=== PATIENT | female | born 1980 | race Caucasian/White ===

== ENCOUNTER 2017-12-17 08:26 | Emergency (ER) | payer OTHER ==
[~2017-12-17] VITALS: Ht 162.6 cm; Wt 110.0 kg
[~2017-12-17 08:26] MED LIST: AMOXICILLIN500 MG OR; AMOXICILLIN500 MG PO; BENTYL10 MG PO; CIPRO500 MG OR; CIPROFLOXACN500 MG PO; CLARITIN10 M1 PO; FLEXERIL10 MG PO; LORTAB 5 OR; MEDDOSEPAK PO; NAPROSYN500 MG PO; NO; PERCOCET 5/325M1 TAB OR; PROTONIX40 MG OR; ROBITUSSIN AC10 ML PO; TAM75CAP PO; TRAMADOL HCL50 MG PO; TRIMOX500 MG PO; ULTRAM50 M1 PO; ULTRAM50 MG OR; ZITHROMAX250 MG PO; ZOFRAN ODT4 MG PO; ZPAK PO
[2017-12-17 08:59] LABS: HEMATOCRIT 41.5 % (37.0-47.0); HEMOGLOBIN 13.5 g/dl (12.0-16.0); IMMATURE GRANULOCYTES 0.3 % (0.0-1.0); MEAN CELL VOLUME 85.4 fL CALC (80.0-100.0); MEAN CORPUSCULAR HGB 27.8 pG CALC (26.0-32.0); MEAN CORPUSCULAR HGB CONC 32.5 g/L CALC (32.0-36.0); NEUT# 12.49 thou/uL (2.00-7.15); RED BLOOD COUNT 4.86 mill/uL (4.20-5.60); RED CELL DISTRI WIDTH 13.5 % (11.5-15.5)
[2017-12-17 09:11] LABS: ALBUMIN 4.3 g/dL (3.2-5.0); ALKALINE PHOSPHATASE 97 u/l (38-126); ANION GAP 18 (6-22 (CALC)); BILIRUBIN, TOTAL 1.1 mg/dL (0.0-1.4); BUN 9 mg/dL (7-17); BUN/CREATININE RATIO 11 (12-20 (CALC)); CARBON DIOXIDE 24 mmol/l (22-30); CHLORIDE 106 mmol/l (95-108); CREATININE 0.8 mg/dL (0.5-1.0); GFR > 60 ML/MIN (>=60 (CALC)); GFR FOR AFR.AMER. > 60 ML/MIN (>=60 (CALC)); SGOT/AST 59 u/l (14-36); SGPT/ALT 58 u/l (9-52); SODIUM 143 mmol/l (137-146); TOTAL PROTEIN 7.7 g/dL (6.3-8.2)
[2017-12-17 09:22] LABS: INFLUENZA A NONE DETECTED (NONE DETECT); INFLUENZA B NONE DETECTED (NONE DETECT)
[2017-12-17] MEDS ORDERED: MEDDOSEPAK PO (09:28)
[2017-12-17] MEDS ORDERED: PROVENTIL HFA IN (09:28)
[2017-12-17] MEDS ORDERED: ZITHROMAX250 MG PO (09:28)
[2017-12-17 09:36] VITALS: BP 128/63
== END 2017-12-17 09:44 | disposition home or self-care (01) | DRG 153 ==
LOC: ED 08:26
PROVIDERS: Emergency Medicine
DX: J06.9 Acute upper respiratory infection, unspecified (principal); J40 Bronchitis, not specified as acute or chronic; R05 Cough; R09.81 Nasal congestion; R11.10 Vomiting, unspecified; R19.7 Diarrhea, unspecified

== ENCOUNTER 2022-07-10 10:29 | Emergency (ER) | payer OTHER ==
[~2022-07-10] VITALS: Ht 162.6 cm; Wt 130.0 kg
[2022-07-10] VITALS (11 sets, daily range): BP systolic 107–131; BP diastolic 79–93
[~2022-07-10 10:29] MED LIST changes: +PROVENTIL HFA IN
[2022-07-10] MEDS ORDERED: VENTOLIN HFA108 MCG IN (12:57)
[2022-07-10] MEDS ORDERED: ZYRTEC10 MG PO (12:57)
[2022-07-10] MEDS ORDERED: PREDNISONE20 MG PO (12:57)
== END 2022-07-10 13:14 | disposition home or self-care (01) ==
LOC: ED 10:29
DX: J40 Bronchitis, not specified as acute or chronic (principal); Z20.822 Contact with and (suspected) exposure to COVID-19

== ENCOUNTER 2024-12-12 00:15 | Emergency (ER) | payer OTHER ==
[~2024-12-12] VITALS: Ht 162.6 cm; Wt 140.6 kg
[~2024-12-12 00:15] MED LIST changes: +CLINDAMYCIN HY150 MG PO; +PREDNISONE20 MG PO; +VENTOLIN HFA108 MCG IN; +ZYRTEC10 MG PO
[2024-12-12] MEDS ORDERED: KETOROLAC TROMETHAMINE 30 MG/ML SDV IM ONE (00:45)
[2024-12-12] MEDS ORDERED: Acetaminophen 300 MG/Codeine 30 MG/COMBO PO ONE (00:45)
[2024-12-12] MEDS ORDERED: VOLTAREN - GENE75 MG PO (02:20)
[2024-12-12] MEDS ORDERED: TRAMADOL HYDROC50 M1 PO (02:20)
[2024-12-12 02:25] VITALS: BP 123/81
[2024-12-12] MEDS ORDERED: traMADol HCL 50 MG/TAB PO ONE (02:25)
== END 2024-12-12 01:30 | disposition home or self-care (01) | DRG 74 ==
LOC: ED 00:15
DX: M54.12 Radiculopathy, cervical region (principal)